=== PATIENT | male | born 1990 | race Caucasian/White ===

== ENCOUNTER 2018-02-21 11:27 | Emergency (ER) | payer SELFPAY ==
[2018-02-21] MEDS ORDERED: IBUPROFEN 200 MG TAB PO ONE (11:48)
--- NOTE | 2018-02-21 13:16 | EDPHYS ---
Physician Documentation [facility] Name: Hiren Burt Age: 27 yrs Sex: Male : 1990 Arrival Date: 02/21/2018 Time: 11:32 Bed 11 Private MD: None, None ED Physician Marcus Andrade HPI: 02/21 11:48 This 27 yrs old Male presents to ER via Ambulatory with complaints of Flu kb Symptoms. 11:48 The patient or guardian reports cough, that is intermittent, described as moderate, kb with no sputum, flu symptoms, low-grade fever, myalgias. Onset: The symptoms/episode began/occurred 3 day(s) ago. Severity of symptoms: At their worst the symptoms were moderate, in the emergency department the symptoms are unchanged. Modifying factors: The symptoms are alleviated by nothing, the symptoms are aggravated by nothing. Associated signs and symptoms: Pertinent positives: nausea, rhinorrhea, sore throat, vomiting, Pertinent negatives: diarrhea, ear ache, fever. The patient has not experienced similar symptoms in the past. The patient has not recently seen a physician. Historical: - Allergies: 11:37 No Known Allergies; sg - Immunization history:: Adult Immunizations up to date. - Social history:: Smoking status: Patient/guardian denies using tobacco. - Ebola Screening: : Patient negative for fever greater than or equal to 101.5 degrees Fahrenheit, and additional compatible Ebola Virus Disease symptoms Patient denies exposure to infectious person Patient denies travel to an Ebola-affected area in the 21 days before illness onset No symptoms or risks identified at this time. ROS: 11:46 Cardiovascular: Negative for chest pain, palpitations, and edema, Back: Negative for kb injury and pain, : Negative for injury, bleeding, discharge, and swelling, MS/Extremity: Negative for injury and deformity, Skin: Negative for injury, rash, and discoloration. 11:46 Constitutional: Positive for body aches, chills, fatigue, malaise, Negative for fever, poor PO intake, weight loss. 11:46 ENT: Positive for rhinorrhea, sinus congestion. 11:46 Respiratory: Positive for cough, Negative for dyspnea on exertion, hemoptysis, orthopnea, pleurisy, shortness of breath, sputum production, wheezing. 11:46 Abdomen/GI: Positive for nausea and vomiting, Negative for abdominal pain, diarrhea, constipation, abdominal cramps, abdominal distension, anorexia. 11:46 Neuro: Positive for headache, Negative for altered mental status, dizziness, gait disturbance, hearing loss, loss of consciousness, numbness, seizure activity, speech changes, syncope, near syncope, tingling, tinnitus, tremor, visual changes, weakness. Exam: 11:48 Constitutional: This is a well developed, well nourished patient who is awake, alert, kb and in no acute distress. Head/Face: Normocephalic, atraumatic. ENT: Nares patent. No nasal discharge, no septal abnormalities noted. Tympanic membranes are normal and external auditory canals are clear. Oropharynx with no redness, swelling, or masses, exudates, or evidence of obstruction, uvula midline. Mucous membranes moist. Neck: Trachea midline, no thyromegaly or masses palpated, and no cervical lymphadenopathy. Supple, full range of motion without nuchal rigidity, or vertebral point tenderness. No Meningismus. Chest/axilla: Normal chest wall appearance and motion. Nontender with no deformity. No lesions are appreciated. Cardiovascular: Regular rate and rhythm with a normal S1 and S2. No gallops, murmurs, or rubs. Normal PMI, no JVD. No pulse deficits. Respiratory: Lungs have equal breath sounds bilaterally, clear to auscultation and percussion. No rales, rhonchi or wheezes noted. No increased work of breathing, no retractions or nasal flaring. Abdomen/GI: Soft, non-tender, with normal bowel sounds. No distension or tympany. No guarding or rebound. No evidence of tenderness throughout. Skin: Warm, dry with normal turgor. Normal color with no rashes, no lesions, and no evidence of cellulitis. MS/ Extremity: Pulses equal, no cyanosis. Neurovascular intact. Full, normal range of motion. Neuro: Awake and alert, GCS 15, oriented to person, place, time, and situation. Cranial nerves II-XII grossly intact. Motor strength 5/5 in all extremities. Sensory grossly intact. Cerebellar exam normal. Normal gait. Vital Signs: 11:38 BP 121 / 81; Pulse 115; Resp 17; Temp 102.5; Pulse Ox 100% on R/A; Pain 10/10; sg 13:24 BP 116 / 72; Pulse 90; Resp 17; Temp 99.0; Pulse Ox 100% on R/A; Pain 6/10; sg MDM: 11:43 Patient medically screened. kb 11:48 Data reviewed: vital signs, nurses notes. Data interpreted: Pulse oximetry: on room air kb is 100 %. Interpretation: normal. 13:14 Counseling: I had a detailed discussion with the patient and/or guardian regarding: the kb historical points, exam findings, and any diagnostic results supporting the discharge/admit diagnosis, lab results, the need for outpatient follow up, a family practitioner, to return to the emergency department if symptoms worsen or persist or if there are any questions or concerns that arise at home. 02/21 11:41 Order name: Flu 02/21 11:43 Order name: Strep 02/21 12:05 Order name: Group A Streptococcus Rapid Sc; Complete Time: 12:05 EDMS 02/21 12:09 Order name: Influenza Screen (A ; Complete Time: 12:10 EDMS 02/21 12:10 Order name: [place] Screen Profile 02/21 13:12 Order name: [place] Screen; Complete Time: 13:14 EDMS Administered Medications: 11:42 Drug: Ibuprofen 600 mg Route: PO; sg 13:19 Follow up: Response: No adverse reaction; Temperature is decreased; Pain is decreased sg Disposition: 02/21/18 13:15 Discharged to Home. Impression: Acute upper respiratory infection, unspecified. - Condition is Stable. - Discharge Instructions: Upper Respiratory Infection, Adult, [id number]. - Prescriptions for Zofran 4 mg Oral Tablet - take 1 tablet by ORAL route every 6 hours As needed; 20 tablet. - Work release form, Medication Reconciliation Form, Thank You Letter, Antibiotic Education, Prescription Opioid Use form. - Follow up: Emergency Department; When: As needed; Reason: Worsening of condition. Follow up: Private Physician; When: 2 - 3 days; Reason: Recheck today's complaints, Continuance of care, Re-evaluation by your physician. Addendum: 02/23/2018 07:20 Co-signature as Attending Physician, Marcus Andrade MD I agree with the assessment and c watters plan of care. PA/LIFE INSURANCE SALESPERSON's history reviewed, patient interviewed, and examined. Signatures: Dispatcher [employer] EDKaylee Adhikari, NEELA-C NEELA-Jens Rodriguez RN RN Marcus Rader MD MD cha Corrections: (The following items were deleted from the chart) 02/21 13:25 13:15 02/21/2018 13:15 Discharged to Home. Impression: Acute upper respiratory sg infection, unspecified. Condition is Stable. Forms are Medication Reconciliation Form, Thank You Letter, Antibiotic Education, Prescription Opioid Use. Follow up: Emergency Department; When: As needed; Reason: Worsening of condition. Follow up: Private Physician; When: 2 - 3 days; Reason: Recheck today's complaints, Continuance of care, Re-evaluation by your physician. kb
--- NOTE | 2018-02-21 13:16 | ER ---
Nurse's Notes [facility] Name: Hiren Burt Age: 27 yrs Sex: Male : 1990 Arrival Date: 02/21/2018 Time: 11:32 Bed 11 Private MD: None, None Diagnosis: Acute upper respiratory infection, unspecified Presentation: 02/21 11:37 Presenting complaint: Patient states: pt reports bodyaches and pain for the past two sg days, chills but unsure if fever at home, reports vomiting but denies N/D. Transition of care: patient was not received from another setting of care. Onset of symptoms was February 21, 2018. Risk Assessment: Do you want to hurt yourself or someone else? Patient reports no desire to harm self or others. Initial Sepsis Screen: Does the patient meet any 2 criteria? No. Patient's initial sepsis screen is negative. Does the patient have a suspected source of infection? No. Patient's initial sepsis screen is negative. Care prior to arrival: None. 11:37 Method Of Arrival: Ambulatory sg 11:37 Acuity: NIKI 4 sg Historical: - Allergies: 11:37 No Known Allergies; sg - Immunization history:: Adult Immunizations up to date. - Social history:: Smoking status: Patient/guardian denies using tobacco. - Ebola Screening: : Patient negative for fever greater than or equal to 101.5 degrees Fahrenheit, and additional compatible Ebola Virus Disease symptoms Patient denies exposure to infectious person Patient denies travel to an Ebola-affected area in the 21 days before illness onset No symptoms or risks identified at this time. Screenin:00 Abuse screen: Denies threats or abuse. Denies injuries from another. Nutritional sg screening: No deficits noted. Tuberculosis screening: No symptoms or risk factors identified. Never had TB. Fall Risk None identified. Assessment: 12:00 General: Appears in no apparent distress. uncomfortable, slender, well groomed, well sg developed, well nourished, Behavior is calm, cooperative, appropriate for age. Pain: Complains of pain in body aches Quality of pain is described as aching. Neuro: No deficits noted. Cardiovascular: Capillary refill is brisk in bilateral fingers Patient's skin is warm and dry. Chest pain is denied. Respiratory: Airway is patent Respiratory effort is even, unlabored, Respiratory pattern is regular, symmetrical, Breath sounds are clear Denies cough, shortness of breath. GI: No signs and/or symptoms were reported involving the gastrointestinal system. : No signs and/or symptoms were reported regarding the genitourinary system. EENT: Nares are clear bilaterally Oral mucosa is moist. Throat is pink. Derm: Skin is pink, warm \T\ dry. Musculoskeletal: No signs and/or symptoms reported regarding the musculoskeletal system. Vital Signs: 11:38 BP 121 / 81; Pulse 115; Resp 17; Temp 102.5; Pulse Ox 100% on R/A; Pain 10/10; sg 13:24 BP 116 / 72; Pulse 90; Resp 17; Temp 99.0; Pulse Ox 100% on R/A; Pain 6/10; sg ED Course: 11:32 Patient arrived in ED. sb2 11:33 None, None is Private Physician. sb2 11:36 Arm band placed on. sg 11:38 Triage completed. sg 11:41 Kaylee Cummings FNP-C [facility]. kb 11:41 Marcus Andrade MD is Attending Physician. kb 12:00 Patient has correct armband on for positive identification. Call light in reach. Pulse sg ox on. NIBP on. 13:24 Jens Shaw, RN is Primary Nurse. sg 13:25 No provider procedures requiring assistance completed. Patient did not have IV access sg during this emergency room visit. Administered Medications: 11:42 Drug: Ibuprofen 600 mg Route: PO; sg 13:19 Follow up: Response: No adverse reaction; Temperature is decreased; Pain is decreased sg Outcome: 13:15 Discharge ordered by . kb 13:25 Discharged to home ambulatory, with family. sg 13:25 Condition: good 13:25 Discharge instructions given to patient, Instructed on discharge instructions, follow up and referral plans. medication usage, safety practices, Demonstrated understanding of instructions, follow-up care, medications, Prescriptions given X 1. 13:25 Patient left the ED. sg Signatures: Kaylee Cummings FNP-C FNP-Jens Rodriguez, RN RN Sarah Kaplan sb2
== END 2018-02-21 13:25 | disposition home or self-care (01) ==
LOC: ER 11:27
DX: J06.9 Acute upper respiratory infection, unspecified (principal)
CPT/HCPCS: 36415; 86308; 87070; 87081; 87804; 99283